=== PATIENT | female | born 1975 | race Caucasian/White ===

== ENCOUNTER 2021-10-16 01:47 | Emergency (ER) | payer MEDICAID ==
[~2021-10-16] VITALS: Ht 165.1 cm; Wt 117.0 kg
[2021-10-16 01:50] VITALS: BP 120/60
[2021-10-16] MEDS ORDERED: ACETAMINOPHEN 500 MG TABLET PO ONE (02:30)
== END 2021-10-16 02:53 | disposition left against medical advice (07) ==
LOC: EDH 01:47
DX: M79.641 Pain in right hand (principal); M25.521 Pain in right elbow; J45.909 Unspecified asthma, uncomplicated; I11.0 Hypertensive heart disease with heart failure; I50.9 Heart failure, unspecified; Z88.5 Allergy status to narcotic agent; W01.0XXA Fall on same level from slipping, tripping and stumbling without subsequent striking against object, initial encounter; Y93.89 Activity, other specified; Y92.098 Other place in other non-institutional residence as the place of occurrence of the external cause; Y99.8 Other external cause status